=== PATIENT | female | born 2000 | race Caucasian/White ===

== ENCOUNTER 2023-05-12 08:18 | Outpatient (OUT) | payer BC, OTHER, SELFPAY ==
--- NOTE | 2023-05-12 09:00 | NM_ITS ---
The [address] [address] Patient Name: PARTHA PHAN MRN: [id number] date: 2000 Sex: F Assigned Patient Location: [place] Current [place] Location: [place] Accession/Order Number: [id number] Exam Date: 05/12/2023 08:45 Report Date: 05/12/2023 11:43 At the request of: NON-STAFF PHYSICIAN Procedure: [place] hepatobiliary w pharm EXAMINATION: [place] hepatobiliary w pharm HISTORY: RIGHT UPPER QUADRANT PAIN COMPARISON: No relevant comparison available. TECHNIQUE: Radionuclide hepatobiliary imaging was performed after intravenous injection of 4.9 mCi technetium 99m mebrofenin with sequential acquisitions every 1 minute for one hour. Hepatobiliary imaging with gallbladder ejection fraction analysis was then performed with sequential imaging every 1 minute for 60 minutes following the patient drinking 8 ounces of ensure. FINDINGS: LIVER: Normal, prompt and uniform radiotracer uptake and clearing. BILIARY DUCTS: Normal radioisotopic biliary excretion. GALLBLADDER: Normal with no evidence of cystic duct obstruction. INTESTINE: Normal with no evidence of common biliary ductal obstruction. EJECTION FRACTION: 23 % within 60 minutes. (Normal EF > 38%). OTHER: Negative. [place] hepatobiliary w pharm IMPRESSION: Biliary dyskinesia with low gallbladder ejection fraction of 23% Electronically authenticated by: TANYA BURTON Date: 05/12/2023 11:43
== END 2023-05-12 08:19 | disposition home or self-care (01) ==
LOC: NM 08:26
DX: R10.12 Left upper quadrant pain (principal); R11.0 Nausea; K82.8 Other specified diseases of gallbladder
CPT/HCPCS: 78227; A9537